=== PATIENT | male | born 2000 | race Caucasian/White ===

== ENCOUNTER 2018-01-30 01:25 | Emergency (ER) | payer OTHER ==
[~2018-01-30] VITALS: Ht 185.4 cm; Wt 91.4 kg
[2018-01-30 01:29] VITALS: TEMP 36.7; Ht 185.4 cm; Wt 91.4 kg
[2018-01-30] MEDS ORDERED: METOCLOPRAMIDE HCL INJ 5 MG/ML 2 ML VIAL IV STA (01:42)
[2018-01-30] MEDS ORDERED: SODIUM CHLORIDE 0.9% 1000ML 2,000 ML IV STA (01:42)
[2018-01-30] MEDS ORDERED: DiphenhydrAMINE HCL 50 MG/ML VIAL IV STA (01:42)
[2018-01-30] MEDS ORDERED: DICYCLOMINE HCL 10 MG/ML 2 ML AMP IM ONE (01:45)
[2018-01-30] MEDS ORDERED: ACNE MED TD (02:12)
[2018-01-30 02:14] VITALS: O2SAT 98
[2018-01-30 02:26] LABS: BASO % 0.1 %; BASO ABS # 0.01 K/uL (0-0.2); EOS % 4.4 %; EOS ABS # 0.32 K/uL (0-0.5); HEMATOCRIT 41.3 % (42-52); HEMOGLOBIN 14.3 g/dL (14.0-18.0); IG# 0.01 K/uL (0.00-0.02); LYMPH % 30.5 %; MEAN CORPUSCULAR HEMOGLOBIN 29.8 pg (25-34); MEAN CORPUSCULAR HGB CONC 34.6 g/dl (32-36); MEAN PLATELET VOLUME 9.4 fL (7.4-10.4); MONO ABS # 0.65 K/uL (0.11-0.59); NEUT % 55.9 %; NEUT ABS # 4.03 K/uL (1.4-6.5); PLATELET COUNT 286 K/uL (130-400); RED CELL DISTRIBUTION WIDTH CV 15.2 % (11.5-14.5); RED CELL DISTRIBUTION WIDTH SD 48.3 fL (36.4-46.3); WHITE BLOOD COUNT 7.22 K/uL (4.8-10.8)
[2018-01-30 03:00] LABS: ALBUMIN 3.8 gm/dl (3.4-5.0); CREATININE 1.2 mg/dl (0.60-1.40); POTASSIUM 3.6 mmol/L (3.5-5.1)
[2018-01-30 03:03] LABS: TOTAL PROTEIN 7.7 gm/dl (6.4-8.2)
[2018-01-30] MEDS ORDERED: RASPBERRY SYRUP 5 ML UDP PO ONE (04:01)
[2018-01-30] MEDS ORDERED: VANCOMYCIN HCL 125 MG/2.5ML SOLN PO STA (04:01)
[2018-01-30 04:02] LABS: PTT PATIENT 28.4 SECONDS (21.0-31.0)
[2018-01-30] MEDS ORDERED: VANC5CAP PO (04:05)
--- NOTE | 2018-01-30 04:57 | EMERGENCY ROOM VISIT NOTE ---
History First contact with patient: 01:35 Chief Complaint: ABDOMINAL PAIN Stated Complaint: ABD PAIN History of Present Illness The patient is a 17 year old male who presents to the Emergency Room with complaints of nausea, vomiting, diarrhea and abdominal cramping for the past few hours with a similar episode a few days ago after eating chicken that he cooked at home. Patient ate the same chicken tonight. Patient denies blood or black in the vomit or stool. Patient denies chest pain, dyspnea, fever, chills , cough, congestion, urinary symptoms, back pain. No recent antibiotics. No well water. No sick contacts. Review of Systems An 10 system review of systems was completed with positives and pertinent negatives listed in the HPI. Past Medical/Surgical History None Social History Smoking Status: Never Smoker Smokeless Tobacco Use: No Alcohol Use: occasionally Drug Use: none Marital Status: single Occupation Status: [employer] student Current/Historical Medications Scheduled Vancomycin Hcl (Vancomycin), 1 CAP PO QID [Acne Med], 1 APPLN TD DAILY Physical Exam Vital Signs Date Time Temp Pulse Resp B/P (MAP) Pulse Ox O2 Delivery O2 Flow Rate FiO2 01/30/18 04:07 53 16 160/86 99 Room Air 01/30/18 02:39 56 16 172/75 100 Room Air 01/30/18 02:14 98 Room Air 01/30/18 01:29 36.7 89 16 159/84 99 Room Air Physical Exam VITALS: Vitals are noted on the nurse's note and reviewed by myself. Vital signs hypertensive. GENERAL: Pleasant male, in no acute distress, nondiaphoretic, well-developed well-nourished. SKIN: The skin was without rashes, erythema, edema, or bruising. There is no tenting of the skin. Capillary reflex less than 2 seconds. HEAD: Normocephalic atraumatic. EARS: External auditory canals clear, tympanic membranes pearly lugo without erythema or effusion bilaterally. EYES: Pupils equal round and reactive to light and accommodation. Conjunctivae without injection, sclerae without icterus. Extraocular movements intact. NOSE: Patent, turbinates without inflammation or discharge. MOUTH: Mucous membranes moist. Pharynx without erythema or exudate. Uvula midline. Airway patent. Tongue does not deviate. NECK: Supple without nuchal rigidity. No lymphadenopathy. No thyromegaly. Cervical spine is nontender. No JVD. HEART: Regular rate and rhythm without murmurs gallops or rubs. LUNGS: Clear to auscultation bilaterally without wheezes, rales or rhonchi. No retractions or accessory muscle use. ABDOMEN: Positive bowel sounds x 4. Normal tympanic percussion. Soft, nontender, without masses or organomegaly. Dexter sign negative. No guarding or rebound tenderness. No CVA tenderness MUSCULOSKELETAL: No muscle atrophy, erythema, or edema noted. NEURO: Patient was alert and oriented to person place and time. Normal sensation to light and sharp touch. No focal neurological deficits. Medical Decision & Procedures Laboratory Results 01/30/18 02:14 Red Blood Count 4.80, Mean Corpuscular Volume 86.0, Mean Corpuscular Hemoglobin 29.8, Mean Corpuscular Hemoglobin Concent 34.6, Mean Platelet Volume 9.4, Neutrophils (%) (Auto) 55.9, Lymphocytes (%) (Auto) 30.5, Monocytes (%) (Auto) 9.0, Eosinophils (%) (Auto) 4.4, Basophils (%) (Auto) 0.1, Neutrophils # (Auto) 4.03, Lymphocytes # (Auto) 2.20, Monocytes # (Auto) 0.65, Eosinophils # (Auto) 0.32, Basophils # (Auto) 0.01 01/30/18 02:14 Test 01/30/18 02:14 White Blood Count 7.22 K/uL (4.8-10.8) Red Blood Count 4.80 M/uL (4.7-6.1) Hemoglobin 14.3 g/dL (14.0-18.0) Hematocrit 41.3 % (42-52) Mean Corpuscular Volume 86.0 fL (80-100) Mean Corpuscular Hemoglobin 29.8 pg (25-34) Mean Corpuscular Hemoglobin Concent 34.6 g/dl (32-36) Platelet Count 286 K/uL (130-400) Mean Platelet Volume 9.4 fL (7.4-10.4) Neutrophils (%) (Auto) 55.9 % Lymphocytes (%) (Auto) 30.5 % Monocytes (%) (Auto) 9.0 % Eosinophils (%) (Auto) 4.4 % Basophils (%) (Auto) 0.1 % Neutrophils # (Auto) 4.03 K/uL (1.4-6.5) Lymphocytes # (Auto) 2.20 K/uL (1.2-3.4) Monocytes # (Auto) 0.65 K/uL (0.11-0.59) Eosinophils # (Auto) 0.32 K/uL (0-0.5) Basophils # (Auto) 0.01 K/uL (0-0.2) RDW Standard Deviation 48.3 fL (36.4-46.3) RDW Coefficient of Variation 15.2 % (11.5-14.5) Immature Granulocyte % (Auto) 0.1 % Immature Granulocyte # (Auto) 0.01 K/uL (0.00-0.02) Prothrombin Time 10.6 SECONDS (9.0-12.0) Prothromb Time International Ratio 1.0 (0.9-1.1) Activated Partial Thromboplast Time 28.4 SECONDS (21.0-31.0) Partial Thromboplastin Ratio 1.1 Anion Gap 5.0 mmol/L (3-11) Est Creatinine Clear Calc Drug Dose 111.9 ml/min Estimated GFR () 101.0 Estimated GFR (Non- 87.1 BUN/Creatinine Ratio 10.9 (10-20) Calcium Level 9.0 mg/dl (8.5-10.1) Total Bilirubin 0.3 mg/dl (0.2-1) Direct Bilirubin 0.1 mg/dl (0-0.2) Aspartate Amino Transf (AST/SGOT) 122 U/L (15-37) Alanine Aminotransferase (ALT/SGPT) 119 U/L (12-78) Alkaline Phosphatase 89 U/L (45-117) Total Protein 7.7 gm/dl (6.4-8.2) Albumin 3.8 gm/dl (3.4-5.0) Medications Administered Medications (Trade) Dose Ordered Sig/Mara Route Start Time Stop Time Status Last Admin Dose Admin Sodium Chloride 2,000 ml @ 999 mls/hr Q2H1M STAT IV 01/30/18 01:42 01/30/18 03:42 DC 01/30/18 02:33 999 MLS/HR Metoclopramide HCl (Reglan Inj) 10 mg NOW STAT IV 01/30/18 01:42 4/13/18 01:43 DC 01/30/18 02:36 10 MG Diphenhydramine HCl (Benadryl Inj) 12.5 mg NOW STAT IV 01/30/18 01:42 01/30/18 01:43 DC 01/30/18 02:36 12.5 MG Dicyclomine HCl (Bentyl Inj) 20 mg NOW ONCE IM 01/30/18 01:45 01/30/18 01:46 DC 01/30/18 02:33 20 MG Vancomycin HCl (Vancomycin Oral Soln) 125 mg NOW STAT PO 01/30/18 04:01 01/30/18 04:02 DC 01/30/18 04:25 125 MG Raspberry (Raspberry Syrup 5ml Cup) 5 ml ONE ONCE PO 01/30/18 04:01 01/30/18 04:13 DC 01/30/18 04:25 5 ML ED Course Prior records/ancillary studies reviewed. Triage Nursing notes reviewed. The patient's history was concerning for nausea, vomiting, diarrhea, and abdominal pain. Differential diagnosis: Etiologies such as gastroenteritis, food borne illness, infections, appendicitis , diverticulitis, inflammatory bowel disease, obstruction, GI bleed, biliary pathology, as well as others were entertained. Physical examination findings: As above. Abdominal examination revealed no tenderness. Vital signs reviewed and revealed stable. ER treatment provided: IV hydration 1 L NSS. Bentyl, Reglan, Benadryl, vancomycin On reassessment the patient felt better. Patient was tolerating p.o. intake. Diagnostics interpretation by me: The labs revealed mildly elevated LFTs. Coags are normal. Hepatitis panel sent Positive C. difficile This appears to be consistent with vomiting and diarrhea with positive C. difficile. Other stool cultures are pending. Patient was started on vancomycin. Patient is tolerating fluids. He did not have acute abdomen on exam. He is well-appearing. He was neurovascularly and neurologically intact. He was advised to take medications as directed, clear liquid diet today and progress to bland diet tomorrow. He Is advised to follow-up with health services in a few days or here in the ER sooner for abdominal pain, fevers, vomiting, worsening signs or symptoms or as needed. By the evaluation outlined above emergent etiologies such as appendicitis, diverticulitis, obstruction, cardiac sources, mesenteric ischemia, aortic pathology, inflammatory bowel disease, renal colic, PUD, biliary pathology, UTI, as well as others were deemed relatively unlikely. The pt informed about the findings as listed above. All questions were answered and pleased with the treatment. Return instructions were outlined and the patient was discharged in stable condition. Outpatient prescription management: Vancomycin Referral: The patient was referred to their primary care physician/S for follow-up in 2 to 3 days for a recheck of the current condition. The chart was completed utilizing [employer] Speech voice recognition software. Grammatical errors, random word insertions, pronoun errors, and incomplete sentences are an occassional consequence of this system due to software limitations, ambient noise, and hardware issues. Any formal questions or concerns about the content, text, or information contained within the body of this dictation should be directly addressed to the physician blood and plasma laboratory assistant for clarification. Medical Decision As above Medication Reconcilliation Current Medication List: was personally reviewed by me Blood Pressure Screening Patient's blood pressure: Elevated blood pressure Blood pressure disposition: Elevated BP felt to be situational Impression Primary Impression: C. difficile diarrhea Additional Impression: Nausea vomiting and diarrhea Departure Information Dispostion Home / Self-Care Condition GOOD Prescriptions Vancomycin Hcl (Vancomycin) 125 Mg Cap 1 CAP PO QID for 10 Days, #40 CAP Prov: Terese Khan ., ANNE 01/30/18 Referrals No Doctor, Assigned (PCP) Patient Instructions [facility] Additional Instructions DO NOT drive, drink alcohol, operate machinery, or perform dangerous activities today. You were given medications in the ER that can affect your ability to safely function or operate a vehicle. Your liver enzymes are elevated. Recheck this with health services. Recommend avoid heavy drinking of alcohol. Recommend no alcohol with antibiotic. You need to bleach down your shared bathroom every time you use it until your diarrhea has subsided and you have finished your antibiotics. Vancomycin 125 mg: Take one pill four times daily for 10 days for your stool infection. All antibiotics can cause diarrhea. If this occurs and you feel worse or it does not resolve in 1-2 days follow up with your doctor or return to the Emergency Department as this could be signs of serious underlying problems. Any medication can cause an allergic reaction, stop the pills immediately and return to the ER for rash, hives, breathing difficulties, or swelling. Zofran(odansetron) tablets 4mg: Take one and allow it to dissolve in your mouth every four to six hours as needed for nausea or vomiting. Rest and drink plenty of fluids as tolerated. Slow sips of water or sports drinks are recommended instead of large amounts all at once. Continue current medications. Once your stomach is settled start with a clear liquid diet (jello, soup broth, etc.) and then advance as tolerated. You should avoid full, heavy meals for about 24 hrs from the time your symptoms resolved. Return to the ER for persistent vomiting, fevers, abdominal pain, chest pains, difficulty breathing, black or bloody stools, worsening of your condition, or as needed. Follow up with your primary physician/Health services in 2-3 days for a recheck of your current condition. Problem Qualifiers
[2018-01-30] MEDS ORDERED: ONDANSETRON HOME PACK 4MG OD TAB PO ONE (05:00)
[2018-01-30 05:16] VITALS: BP 140/87; PULSE 57; O2SAT 99
[2018-01-30 08:29] LABS: HEP C IGG 13 YRS+OLDER_RFLX NEG (NEG)
--- NOTE | 2018-01-30 13:49 | Pharmacy Progress Note ---
ED Pharmacist Culture FollowUp Date of Service: Jan 30, 2018. Patient was sent home with a prescription for oral vancomycin X 10 days, which should cover the patient's positive C.Diff result. It appears the patient was aware of the result at discharge.
[2018-01-31 08:08] LABS: HEPATITIS A IGM TC 51813E NON-REACTIVE (NON-REACTIVE); HEPATITIS B CORE IGM TC51854R NON-REACTIVE (NON-REACTIVE)
== END 2018-01-30 05:18 | disposition home or self-care (01) ==
LOC: C.EDB 01:27
DX: A04.72 Enterocolitis due to Clostridium difficile, not specified as recurrent (principal); R11.2 Nausea with vomiting, unspecified; R19.7 Diarrhea, unspecified